=== PATIENT | female | born 1985 | race Caucasian/White ===

== ENCOUNTER 2020-05-02 12:00 | Inpatient (IN) | payer OTHER ==
--- NOTE | 2020-05-02 08:17 | PCM.LDHP ---
L&D History of Present Illness - General Date of Service: 05/02/20 Admit Problem/Dx: Admission Diagnosis/Problem Admission Diagnosis/Problem 05/02/20 08:02 at 39 weeks Elective induction of labor at term Source of Information: Patient History Limitations: Reports: No Limitations - History of Present Illness Introduction:: 34 yo A1 at 39+1 weeks gestation admitted for elective induction of labor. She has a favorable cervix and history of precipitous delivery with her last baby. [place] of town and is concerned that she wouldn't make it to the hospital in time if she goes into labor spontaneously. GBS is negative, blood type is O positive. 1 hour glucola was wnl at 112. Her infectious disease screenings were all negative and she has good antibodies to Rubella and Varicella. She declined testing for trisomies and NTD. She has had a mild anemia with this and has been taking an iron supplement in addition to her vitamin. She is a non smoker. She received her Tdap on 03/11/2020 but did not get a flu vaccine this past season. Her biggest baby was 8 lb 3 oz in 2012 and her last baby was 7 lb 14 oz. She breastfed all of her babies for at least a year and plans to breastfeed with this baby as well. She has not been feeling well this week with fatigue, cramping and some diarrhea . She denies fever, cough, body aches and SOB. - Related Data Allergies/Adverse Reactions: Allergies Allergy/AdvReac Type Severity Reaction Status Date / Time amoxicillin Allergy Mild Hives Verified 05/02/20 12:08 codeine Allergy Mild Hives Verified 05/02/20 12:08 erythromycin base Allergy Mild Hives Verified 05/02/20 12:08 Home Medications: Home Meds Acetaminophen [Tylenol] 650 mg PO Q6H PRN #0 tablet 02/21/16 [Rx] Docusate Sodium [Colace] 100 mg PO BID PRN #0 cap 02/21/16 [Rx] Ibuprofen [IJD: Ibuprofen] 800 mg PO Q8H PRN #0 tablet 02/21/16 [Rx] Vit with Ca/FA/Iron [ Plus Iron] 1 each PO DAILY tablet 02/21/16 [Rx] Pyridoxine HCl (Vitamin B6) [Vitamin B-6] 50 mg PO TID 10/24/19 [History] Past Medical History - Past Health History Medical/Surgical History: Denies Medical/Surgical History HEENT History: Reports: Impaired Vision Cardiovascular History: Reports: None Respiratory History: Reports: None Gastrointestinal History: Reports: None Genitourinary History: Reports: None, Retention, Urinary (At the beginning of her that required urinary catheterization. 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 Para: 3 LMP (Approximate): Musculoskeletal History: Reports: Other (See Below) Other Musculoskeletal History: foot surgery Neurological History: Reports: None Psychiatric History: Reports: None Endocrine/Metabolic History: Reports: None Hematologic History: Reports: None Immunologic History: Reports: None Oncologic (Cancer) History: Reports: None Dermatologic History: Reports: None - Infectious Disease History Infectious Disease History: Reports: None - Past Surgical History Head Surgeries/Procedures: Reports: None Neurological Surgical History: Reports: None Social & Family History - Family History Family Medical History: Noncontributory - Tobacco Use Smoking Status *Q: Never Smoker - Tobacco Core Measures Tobacco Use/Smoking Within Last 30 Days: No - Caffeine Use Caffeine Use: Reports: None - Living Situation & Occupation Living situation: Reports: Occupation: Unemployed H&P Review of Systems - Review of Systems: Review Of Systems: See Below General: Reports: Fatigue HEENT: Reports: No Symptoms Pulmonary: Reports: No Symptoms Cardiovascular: Reports: No Symptoms Gastrointestinal: Reports: Diarrhea Genitourinary: Reports: No Symptoms Skin: Reports: No Symptoms Neurological: Reports: No Symptoms Hematologic/Lymphatic: Reports: No Symptoms Immunologic: Reports: No Symptoms L&D Exam - Exam Exam: See Below - OB Specific Contraction Duration (sec): No contractions Movement: Active Heart Tones: Present Heart Tones per Min: 150 Heart Rate (FHR) Variability: Moderate (6-25 bmp) Presentation: Vertex Estimated Weight: 7 lb - Marino Score Marino Score Cervix Position: Midposition Marino Score Consistency: Soft Marino Score Effacement: 51-70% Marino Score Dilation: 3-4 cm Marino Score 's Station: -1 ,0 Marino Score Total: 9 - Exam General: Alert, Oriented HEENT: Conjunctiva Clear, Mucosa Moist & [place], Pupils Equal Neck: Supple, Trachea Midline Lungs: Normal Respiratory Effort Cardiovascular: Regular Rate, Regular Rhythm GI/Abdominal Exam: Normal Bowel Sounds Rectal Exam: Deferred Genitourinary: Normal external exam Back Exam: Normal Inspection, Full Range of Motion Extremities: Normal Inspection, No Pedal Edema, Normal Capillary Refill Skin: Warm, Dry, Intact Neurological: Cranial Nerves Intact, Normal Gait, Normal Speech Psychiatric: Alert, Normal Affect, Normal Mood - Patient Data Result Diagrams: 05/02/20 12:00 - Problem List (1) 39 weeks gestation of SNOMED Code(s): 67892412 ICD Code: Z3A.39 - 39 WEEKS GESTATION OF Status: Acute Current Visit: No (2) History of precipitous labor and deliveries in third trimester, antepartum SNOMED Code(s): 386794722, 743875742, 534975247, 820792034 ICD Code: O09.293 - SUPRVSN OF PREG W POOR REPRODCTV OR OBSTET HX, THIRD TRI Status: Acute Current Visit: No Problem List Initiated/Reviewed/Updated: Yes Assessment/Plan Comment:: 34 yo A1 at 39+1 weeks gestation admitted for elective induction of labor with a favorable cervix. GBS negative. Blood type O positive. Plans to breastfeed. Plan: Start induction with AROM and pitocin per protocol Anticipate vaginal delivery. Skin to skin after delivery and Mom plans to breastfeed. COVID testing today.
[~2020-05-02 12:00] MED LIST: Acetaminophen 325 MG Tab PO PRN; Calcium Carbonate 500 MG Tab.Chew PO PRN; Famotidine 20 MG Tab PO PRN; Lidocaine 1% 50 ML MDV INJECT ONE; Lidocaine 1.5% with EPINEPHrine 1:200,000 5 ML Amp ONE; Nalbuphine 10 MG/ML Syringe IVPUSH PRN; Ondansetron 4 MG/2 ML SDV IVPUSH PRN; Oxytocin/Lactated Ringers 10 UNIT/1,000 ML BAG IV SCH; Sodium Chloride 0.9% 10 ML Syringe FLUSH PRN
[2020-05-02] MEDS: Lactated Ringers 1,000 ML IV SCH ×3 (12:45→16:39)
[2020-05-02] MEDS ORDERED: fentaNYL 100 MCG/2 ML SDV EPIDUR PRN (13:37)
[2020-05-02] MEDS ORDERED: diphenhydrAMINE 50 MG/ML SDV IVPUSH PRN (13:37)
[2020-05-02] MEDS ORDERED: Bupivacaine/fentaNYL/NS 100 ML Bag EPIDUR PRN (13:37)
[2020-05-02] MEDS ORDERED: ePHEDrine 50 MG/ML SDV IVPUSH PRN (13:37)
--- NOTE | 2020-05-02 14:06 | PCM.PREANE ---
Preanesthetic Assessment - Procedure Proposed Procedure: Continuous labor epidural - Anesthesia/Transfusion/Family Hx Anesthesia History: Prior Anesthesia Without Reaction - Review of Systems General: No Symptoms Pulmonary: No Symptoms Cardiovascular: No Symptoms Gastrointestinal: No Symptoms Neurological: No Symptoms Other: Reports: None - Physical Assessment Vital Signs: Last Vital Signs Temp 98.1 F 05/02/20 12:24 Pulse 103 H 05/02/20 12:24 Resp 18 05/02/20 12:24 BP 120/74 05/02/20 12:24 Pulse Ox 99 05/02/20 12:24 Height: 1.65 m Weight: 74.525 kg ASA Class: 2 Mental Status: Alert & Oriented x3 Airway Class: Mallampati = 2 Dentition: Reports: Normal Dentition Thyro-Mental Finger Breadths: 3 Mouth Opening Finger Breadths: 3 ROM/Head Extension: Full Lungs: Clear to Auscultation, Normal Respiratory Effort Cardiovascular: Regular Rate, Regular Rhythm - Lab Values: Laboratory Last Values WBC 10.19 K/mm3 (3.98-10.04) H 05/02/20 12:00 RBC 3.50 M/mm3 (3.98-5.22) L 05/02/20 12:00 Hgb 10.8 gm/dl (11.2-15.7) L 05/02/20 12:00 Hct 34.1 % (34.1-44.9) 05/02/20 12:00 MCV 97.4 fl (79.4-94.8) H 05/02/20 12:00 MCH 30.9 pg (25.6-32.2) 05/02/20 12:00 MCHC 31.7 g/dl (32.2-35.5) L 05/02/20 12:00 RDW Std Deviation 44.2 fL (36.4-46.3) 05/02/20 12:00 Plt Count 223 K/mm3 (182-369) 05/02/20 12:00 MPV 9.1 fl (9.4-12.3) L 05/02/20 12:00 COVID-19 (MARTÍNEZ) Negative (NEGATIVE) 05/02/20 12:35 - Allergies Allergies/Adverse Reactions: Allergies Allergy/AdvReac Type Severity Reaction Status Date / Time amoxicillin Allergy Mild Hives Verified 05/02/20 12:08 codeine Allergy Mild Hives Verified 05/02/20 12:08 erythromycin base Allergy Mild Hives Verified 05/02/20 12:08 - Acknowledgements Anesthesia Type Planned: Epidural Pt an Appropriate Candidate for the Planned Anesthesia: Yes Alternatives and Risks of Anesthesia Discussed w Pt/Guardian: Yes Pt/Guardian Understands and Agrees with Anesthesia Plan: Yes PreAnesthesia Questionnaire - Past Health History Medical/Surgical History: Denies Medical/Surgical History HEENT History: Reports: Impaired Vision Cardiovascular History: Reports: None Respiratory History: Reports: None Gastrointestinal History: Reports: None Genitourinary History: Reports: None, Retention, 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: Musculoskeletal History: Reports: Other (See Below) Other Musculoskeletal History: foot surgery Neurological History: Reports: None Psychiatric History: Reports: None Endocrine/Metabolic History: Reports: None Hematologic History: Reports: None Immunologic History: Reports: None Oncologic (Cancer) History: Reports: None Dermatologic History: Reports: None - Infectious Disease History Infectious Disease History: Reports: None - Past Surgical History Head Surgeries/Procedures: Reports: None Neurological Surgical History: Reports: None - SUBSTANCE USE Smoking Status *Q: Never Smoker - HOME MEDS Home Medications: Home Meds Acetaminophen [Tylenol] 650 mg PO Q6H PRN #0 tablet 02/21/16 [Rx] Docusate Sodium [Colace] 100 mg PO BID PRN #0 cap 02/21/16 [Rx] Ibuprofen [IJD: Ibuprofen] 800 mg PO Q8H PRN #0 tablet 02/21/16 [Rx] Vit with Ca/FA/Iron [ Plus Iron] 1 each PO DAILY tablet 02/21/16 [Rx] Pyridoxine HCl (Vitamin B6) [Vitamin B-6] 50 mg PO TID 10/24/19 [History] - CURRENT (IN HOUSE) MEDS Current Meds: Current Medications Acetaminophen (Tylenol) 650 mg PO Q4H PRN PRN Reason: Pain (Mild 1-3) and fever Calcium Carbonate/Glycine (Tums) 1,000 mg PO Q2H PRN PRN Reason: Indigestion Diphenhydramine HCl (Benadryl) 25 mg IVPUSH Q6H PRN PRN Reason: pruritis Ephedrine Sulfate (Ephedrine Sulfate) 5 mg IVPUSH ASDIRECTED PRN PRN Reason: Hypotension Famotidine (Pepcid) 20 mg PO Q12H PRN PRN Reason: Heartburn Fentanyl (Sublimaze) 100 mcg EPIDUR Q3H PRN PRN Reason: Pain Fentanyl/Bupivacaine HCl (Fentanyl/Bupivacaine/Ns 2 Mcg-0.125% 100 Ml) 100 ml EPIDUR ASDIRECTED PRN PRN Reason: Pain Oxytocin/Lactated Ringer's (Pitocin In Lr 10 Units/1,000 Ml) 10 unit in 1,000 mls @ 12 mls/hr IV TITRATE ROYA; Protocol Oxytocin/Lactated Ringer's (Pitocin In Lr 10 Units/1,000 Ml) 10 unit in 1,000 mls @ 500 mls/hr IV .CONTINUOUS ROYA Lactated Ringer's (Ringers, Lactated) 1,000 mls @ 100 mls/hr IV ASDIRECTED ROYA Last Admin: 05/02/20 13:37 Dose: 100 mls/hr Documented by: Nalbuphine HCl (Nubain) 10 mg IVPUSH Q2H PRN PRN Reason: Pain Ondansetron HCl (Zofran) 4 mg IVPUSH Q4H PRN PRN Reason: Nausea/Vomiting Sodium Chloride (Saline Flush) 10 ml FLUSH ASDIRECTED PRN PRN Reason: Keep Vein Open Discontinued Medications Lidocaine HCl (Xylocaine 1%) 20 ml INJECT ONETIME ONE Stop: 05/02/20 08:28
--- NOTE | 2020-05-02 20:00 | PCM.DEL ---
L & D Note - General Info Date of Service: 05/02/20 Mother's Due Date: 05/08/20 - Delivery Note Labor: Induced by ARM Delivery Outcome: Livebirth Infant Delivery Method: Spontaneous Vaginal Delivery-Single Delivery Mode: Spontaneous Presentation: Left Occiput Anterior (HARSHA) Nuchal Cord: Present (1 loop that was snug, reduced) Prep: Povidone-Iodine (Betadine Anesthesia Type: Epidural Amniotic Fluid Description: Clear Episiotomy Type: None Laceration: None Placenta: Intact, Spontaneous Cord: 3 Vessels Estimated Blood Loss: 200 Resuscitation Needed: No : Bulb Syringe, Stimulated, Warmed, [place] Used Score 1 min: 8 Score 5 min: 9 Delivery Comments (Free Text/Narrative):: 34 yo A1 female admitted for elective induction of labor at 39 weeks with history of precipitous delivery with her last baby. GBS negative, blood type O positive. COVID test today negative. She was 3-4 cm, 50% effaced, station -1 on admission at noon today. She was not having any contractions. AROM was performed with clear fluid. She started having contractions after the AROM and had an epidural placed at 1430. She had good analgesia with that. She progressed well and did not need any pitocin to augment her labor. She was completely dilated at about 1815 and I was called to attend. We had her prepped and started pushing at 1834. Baby tolerated second stage of labor well. Head delivered from HARSHA position and there was a nuchal cord with 1 loop that was reduced and then the shoulders were delivered without difficulty. Time of delivery was 1926 and we had a baby girl. She cried at the perineum, mouth and nose were suctioned with bulb suction and she was placed skin to skin on mother's abdomen. She was dried and stimulated and suctioned. The cord was clamped once it stopped pulsating and baby was moved up to her chest, skin to skin. Apgars were 8 and 9 at 1 and 5 minutes respectively. Pitocin IV bolus was started after baby delivered. Placenta delivered spontaneously at 1933 and it was intact. There were 3 vessels in the cord. There was no perineal tear. Uterus firmed down nicely. EBL was 200 ml weight was 8 lb 7 oz, (3820 grams). Mom plans to breastfeed. Both Mom and baby were left in the delivery room in stable condition. Induction Criteria - Marino Score Marino Score Dilation: 3-4 cm Marino Score Effacement: 40-50% Marino Score Infant's Station: -1 ,0 Marino Score Consistency: Soft Marino Score Cervix Position: Midposition Marino Score Total: 8 Marino Score Presenting Part: Reports: Cephalic - Induction Gestational Age >/= 39 wks: Yes Estimated Pelvis: Reports: Adequate Reassuring Monitoring Strip: Yes Absence of Tachy Systole: Yes - General Info Date of Service: 05/02/20 Admission Dx/Problem (Free Text): Admission Diagnosis/Problem Admission Diagnosis/Problem 05/02/20 08:02 at 39 weeks Elective induction of labor at term Functional Status: Reports: Pain Controlled, Tolerating Diet - Review of Systems General: Reports: No Symptoms HEENT: Reports: No Symptoms Pulmonary: Reports: No Symptoms Cardiovascular: Reports: No Symptoms Gastrointestinal: Reports: No Symptoms Genitourinary: Reports: No Symptoms Musculoskeletal: Reports: No Symptoms Skin: Reports: No Symptoms Neurological: Reports: No Symptoms Psychiatric: Reports: No Symptoms - Patient Data Vitals - Most Recent: Last Vital Signs Temp 36.7 C 05/02/20 12:24 Pulse 103 H 05/02/20 12:24 Resp 18 05/02/20 12:24 BP 120/74 05/02/20 12:24 Pulse Ox 99 05/02/20 12:24 Weight - Most Recent: 74.525 kg I&O - Last 24 Hours: Intake & Output 05/02/20 05/02/20 05/02/20 06:59 14:59 22:59 Intake Total 560 Balance 560 Lab Results Last 24 Hours: Laboratory Results - last 24 hr 05/02/20 05/02/20 Range/Units 12:00 12:35 WBC 10.19 H (3.98-10.04) K/mm3 RBC 3.50 L (3.98-5.22) M/mm3 Hgb 10.8 L (11.2-15.7) gm/dl Hct 34.1 (34.1-44.9) % MCV 97.4 H (79.4-94.8) fl MCH 30.9 (25.6-32.2) pg MCHC 31.7 L (32.2-35.5) g/dl RDW Std Deviation 44.2 (36.4-46.3) fL Plt Count 223 (182-369) K/mm3 MPV 9.1 L (9.4-12.3) fl COVID-19 (MARTÍNEZ) Negative (NEGATIVE) Med Orders - Current: Current Medications Acetaminophen (Tylenol) 650 mg PO Q4H PRN PRN Reason: Pain (Mild 1-3) and fever Calcium Carbonate/Glycine (Tums) 1,000 mg PO Q2H PRN PRN Reason: Indigestion Diphenhydramine HCl (Benadryl) 25 mg IVPUSH Q6H PRN PRN Reason: pruritis Ephedrine Sulfate (Ephedrine Sulfate) 5 mg IVPUSH ASDIRECTED PRN PRN Reason: Hypotension Famotidine (Pepcid) 20 mg PO Q12H PRN PRN Reason: Heartburn Fentanyl (Sublimaze) 100 mcg EPIDUR Q3H PRN PRN Reason: Pain Last Admin: 05/02/20 14:14 Dose: 100 mcg Documented by: Fentanyl/Bupivacaine HCl (Fentanyl/Bupivacaine/Ns 2 Mcg-0.125% 100 Ml) 100 ml EPIDUR ASDIRECTED PRN PRN Reason: Pain Last Admin: 05/02/20 14:15 Dose: 100 ml Documented by: Oxytocin/Lactated Ringer's (Pitocin In Lr 10 Units/1,000 Ml) 10 unit in 1,000 mls @ 12 mls/hr IV TITRATE ROYA; Protocol Oxytocin/Lactated Ringer's (Pitocin In Lr 10 Units/1,000 Ml) 10 unit in 1,000 mls @ 500 mls/hr IV .CONTINUOUS ROYA Lactated Ringer's (Ringers, Lactated) 1,000 mls @ 100 mls/hr IV ASDIRECTED ROYA Last Admin: 05/02/20 16:39 Dose: 100 mls/hr Documented by: Nalbuphine HCl (Nubain) 10 mg IVPUSH Q2H PRN PRN Reason: Pain Ondansetron HCl (Zofran) 4 mg IVPUSH Q4H PRN PRN Reason: Nausea/Vomiting Sodium Chloride (Saline Flush) 10 ml FLUSH ASDIRECTED PRN PRN Reason: Keep Vein Open Discontinued Medications Lidocaine HCl (Xylocaine 1%) 20 ml INJECT ONETIME ONE Stop: 05/02/20 08:28 - Exam General: Alert, Oriented, Cooperative, No Acute Distress HEENT: Pupils Equal, Mucous Membr. Moist/[place] Neck: Supple Lungs: Normal Respiratory Effort Cardiovascular: Regular Rate, Regular Rhythm (Female) Exam: Normal External Exam, Vaginal Bleeding, Other (Fundus firm) Back Exam: Normal Inspection, Full Range of Motion Extremities: Normal Inspection Skin: Warm, Dry, Intact Neurological: No New Focal Deficit Psy/Mental Status: Alert, Normal Affect, Normal Mood - Problem List & Annotations (1) 39 weeks gestation of SNOMED Code(s): 93870878 Code(s): Z3A.39 - 39 WEEKS GESTATION OF Status: Acute Current Visit: No (2) History of precipitous labor and deliveries in third trimester, antepartum SNOMED Code(s): 467243462, 853775172, 855283136, 220749312 Code(s): O09.293 - SUPRVSN OF PREG W POOR REPRODCTV OR OBSTET HX, THIRD TRI Status: Acute Current Visit: No (3) Normal spontaneous vaginal delivery SNOMED Code(s): 55657738, 351779602 Code(s): O80 - ENCOUNTER FOR FULL-TERM UNCOMPLICATED DELIVERY Status: Acute Current Visit: Yes (4) Breast feeding status of mother SNOMED Code(s): 595750072 Code(s): Z39.1 - ENCOUNTER FOR CARE AND EXAMINATION OF LACTATING MOTHER Status: Acute Current Visit: Yes - Problem List Review Problem List Initiated/Reviewed/Updated: Yes - My Orders Last 24 Hours: My Active Orders 05/02/20 08:27 Patient Status [ADT] Routine Activity as Tolerated [RC] PFP Communication Order [RC] ASDIRECTED Non Stress Test [RC] PER UNIT ROUTINE Notify Provider [RC] PFP Notify Provider [RC] PRN Acetaminophen [Tylenol] 650 mg PO Q4H PRN Calcium Carbonate [Tums] 1,000 mg PO Q2H PRN Famotidine [Pepcid] 20 mg PO Q12H PRN Nalbuphine [Nubain] 10 mg IVPUSH Q2H PRN Ondansetron [Zofran] 4 mg IVPUSH Q4H PRN Sodium Chloride 0.9% [Saline Flush] 10 ml FLUSH ASDIRECTED PRN Electronic Heart Tones Ext w TOCO [WOMSER] Routine Electronic Heart Tones Internal [WOMSER] Per Unit Routine Peripheral IV Insertion Adult [OM.PC] Routine Telemetry Monitoring [WOMSER] Routine Resuscitation Status Routine 05/02/20 08:28 Heart Tones [RC] ASDIRECTED Peripheral IV Care [RC] Q2HR 05/02/20 08:30 Lactated Ringers [Ringers, Lactated] 1,000 ml IV ASDIRECTED Oxytocin/Lactated Ringers [Pitocin in LR 10 Units/1,000 ML] 10 unit in 1,000 ml IV .CONTINUOUS Oxytocin/Lactated Ringers [Pitocin in LR 10 Units/1,000 ML] 10 unit in 1,000 ml IV TITRATE 05/02/20 12:00 RAPID PLASMA REAGIN,RPR [CHEM] Routine 05/02/20 Dinner Regular Diet [DIET] - Assessment Assessment:: at 39+1 weeks gestation. No perineal tear. EBL 200 ml, fundus firm. - Plan Plan:: 1. Routine care 2. support and encouragement.
[2020-05-02] MEDS ORDERED: Witch Hazel Medicated Pads 40/Jar TOP PRN (20:15)
[2020-05-02] MEDS ORDERED: Simethicone 80 MG Tab.Chew PO PRN (20:15)
[2020-05-02] MEDS ORDERED: Docusate Sodium 100 MG Cap PO PRN (20:15)
[2020-05-02] MEDS: Ibuprofen 800 MG Tab PO PRN (20:54)
[2020-05-03] MEDS: Ibuprofen 800 MG Tab PO PRN ×3 (03:37→15:29)
[2020-05-03] MEDS ORDERED: Prenatal Multivitamin with Calcium/Folic Acid/Iron Tab PO SCH (09:00)
[2020-05-03] MEDS: Ferrous Sulfate 324 MG Tab.EC PO SCH (09:18)
--- NOTE | 2020-05-03 11:18 | PCM.DCSUM1 ---
Discharge Summary - Hospital Course Free Text/Narrative:: 34 yo A1 female admitted for elective induction of labor at 39 weeks with history of precipitous delivery with her last baby. GBS negative, blood type O positive. COVID test negative. She was 3-4 cm, 50% effaced, station -1 on admission at noon on 05/02/20. She was not having any contractions. AROM was performed with clear fluid. She started having contractions after the AROM and had an epidural placed at 1430. She had good analgesia with that. She progressed well and did not need any pitocin to augment her labor. She was completely dilated at about 1815 and I was called to attend. We had her prepped and started pushing at 1834. Baby tolerated second stage of labor well. Head delivered from HARSHA position and there was a nuchal cord with 1 loop that was reduced and then the shoulders were delivered without difficulty. Time of delivery was 192 and we had a baby girl. She cried at the perineum, mouth and nose were suctioned with bulb suction and she was placed skin to skin on mother's abdomen. She was dried and stimulated and suctioned. The cord was clamped once it stopped pulsating and baby was moved up to her chest, skin to skin. Apgars were 8 and 9 at 1 and 5 minutes respectively. Pitocin IV bolus was started after baby delivered. Placenta delivered spontaneously at 1933 and it was intact. There were 3 vessels in the cord. There was no perineal tear. Uterus firmed down nicely. EBL was 200 ml weight was 8 lb 7 oz, (3820 grams). Mom plans to breastfeed. Both Mom and baby were left in the delivery room in stable condition. She has done well with only light bleeding and no clots. Mild crampi ng relieved with ibuprofen. She has been and denies nipple pain. Appetite has been good, no further diarrhea. Denies headache or dizziness. Some mild discomfort at epidural site. Denies calf pain. Mood is stable, EPDS score is 3. Diagnosis: Stroke: No Modified Tierra Scale: No Symptoms at All Modified Fawnskin Scale Score: 0 - Discharge Data Discharge Date: 05/03/20 Discharge Disposition: Home, Self-Care 01 Condition: Good - Referral to Home Health Primary Care Physician: Elizabeth Conn MD - Discharge Diagnosis/Problem(s) (1) 39 weeks gestation of SNOMED Code(s): 76551589 ICD Code: Z3A.39 - 39 WEEKS GESTATION OF Status: Acute Current Visit: No (2) History of precipitous labor and deliveries in third trimester, antepartum SNOMED Code(s): 914082237, 870261055, 825214614, 186970403 ICD Code: O09.293 - SUPRVSN OF PREG W POOR REPRODCTV OR OBSTET HX, THIRD TRI Status: Acute Current Visit: No (3) Normal spontaneous vaginal delivery SNOMED Code(s): 23631157, 133124247 ICD Code: O80 - ENCOUNTER FOR FULL-TERM UNCOMPLICATED DELIVERY Status: Acute Current Visit: Yes (4) Breast feeding status of mother SNOMED Code(s): 550377086 ICD Code: Z39.1 - ENCOUNTER FOR CARE AND EXAMINATION OF LACTATING MOTHER Status: Acute Current Visit: Yes - Patient Instructions Diet: Usual Diet as Tolerated, Drink 8-10+ Glasses/Day Activity: As Tolerated Driving: May Drive Today Showering/Bathing: May Shower Notify Provider of: Fever, Increased Pain, Swelling and Redness, Drainage, Nausea and/or Vomiting - Discharge Plan *PRESCRIPTION DRUG MONITORING PROGRAM REVIEWED*: Not Applicable *COPY OF PRESCRIPTION DRUG MONITORING REPORT IN PATIENT DIEGO: Not Applicable Home Medications: Home Meds Acetaminophen [Tylenol] 650 mg PO Q6H PRN #0 tablet 02/21/16 [Rx] Docusate Sodium [Colace] 100 mg PO BID PRN #0 cap 02/21/16 [Rx] Ibuprofen [IJD: Ibuprofen] 800 mg PO Q8H PRN #0 tablet 02/21/16 [Rx] Vit with Ca/FA/Iron [ Plus Iron] 1 each PO DAILY tablet 02/21/16 [Rx] Acetaminophen [Tylenol] 650 mg PO Q4H PRN tablet 05/03/20 [Rx] Ferrous Sulfate 324 mg PO BIDMEALS tab.ec 05/03/20 [Rx] witch Heide [Tucks] 1 pad TOP ASDIRECTED PRN pad 05/03/20 [Rx] Oxygen Therapy Mode: Room Air Patient Handouts: and Inducing , Rooming-In With Your , Exclusive , Breast Pumping Tips, and Low Milk Supply, and Medicine Use, and Mastitis, and Self-Care, Breast Engorgement, Nursing Strike, Tips for a Good Latch, and Cracked or Sore Nipples, Eating Plan for Women, Storing Breast Milk - Discharge Summary/Plan Comment DC Time >30 min.: No Discharge Summary/Plan Comment: 34 yo A1 who was induced at 39 weeks with AROM. She did have an epidural which she did well with. Labor progressed normally and had at 1927 on 05/02/20 and had a baby girl weighing 8 lb 7 oz. Baby latched and nursed in the delivery room and continues to nurse. EBL was 200 ml, uterus has been firm and bleeding light since delivery. She had no perineal tear and just using ibuprofen for some mild cramping. Blood type is O positive and she had her Tdap antenatally. COVID test was negative on admission. EPDS score is 3 today. A/P: day #1 - will discharge today and follow up in 6 weeks for visit. Advised no intercourse for 6 weeks and will plan to start minipill at 6 weeks. - she has breastfed with her other 3 children for over a year. Reviewed signs of a good latch and feeding cues. Continue . Advised to start a vitamin D supplement daily. Mild anemia - continue PNV and iron supplement. - General Info Date of Service: 05/03/20 Admission Dx/Problem (Free Text: Admission Diagnosis/Problem Admission Diagnosis/Problem 05/02/20 08:02 at 39 weeks Elective induction of labor at term Functional Status: Reports: Pain Controlled, Tolerating Diet, Ambulating, Urinating - Review of Systems General: Reports: No Symptoms HEENT: Reports: No Symptoms Pulmonary: Reports: No Symptoms Cardiovascular: Reports: No Symptoms Gastrointestinal: Reports: No Symptoms Genitourinary: Reports: No Symptoms Musculoskeletal: Reports: Back Pain Skin: Reports: No Symptoms Neurological: Reports: No Symptoms Psychiatric: Reports: No Symptoms - Patient Data Vitals - Most Recent: Last Vital Signs Temp 37.0 C 05/03/20 09:15 Pulse 85 05/03/20 09:15 Resp 15 05/03/20 09:15 BP 108/56 L 05/03/20 09:15 Pulse Ox 97 05/03/20 09:15 Weight - Most Recent: 74.525 kg I&O - Last 24 hours: Intake & Output 05/02/20 05/03/20 05/03/20 22:59 06:59 14:59 Intake Total 4560 Balance 4560 Lab Results - Last 24 hrs: Laboratory Results - last 24 hr 05/02/20 05/02/20 05/02/20 Range/Units 12:00 12:00 12:35 WBC 10.19 H (3.98-10.04) K/mm3 RBC 3.50 L (3.98-5.22) M/mm3 Hgb 10.8 L (11.2-15.7) gm/dl Hct 34.1 (34.1-44.9) % MCV 97.4 H (79.4-94.8) fl MCH 30.9 (25.6-32.2) pg MCHC 31.7 L (32.2-35.5) g/dl RDW Std Deviation 44.2 (36.4-46.3) fL Plt Count 223 (182-369) K/mm3 MPV 9.1 L (9.4-12.3) fl RPR Non-reactive (NONREACTIVE) COVID-19 (MARTÍNEZ) Negative (NEGATIVE) 05/03/20 Range/Units 05:19 WBC 14.75 H (3.98-10.04) K/mm3 RBC 3.31 L (3.98-5.22) M/mm3 Hgb 10.2 L (11.2-15.7) gm/dl Hct 32.4 L (34.1-44.9) % MCV 97.9 H (79.4-94.8) fl MCH 30.8 (25.6-32.2) pg MCHC 31.5 L (32.2-35.5) g/dl RDW Std Deviation 44.1 (36.4-46.3) fL Plt Count 205 (182-369) K/mm3 MPV 9.7 (9.4-12.3) fl RPR (NONREACTIVE) COVID-19 (MARTÍNEZ) (NEGATIVE) Med Orders - Current: Current Medications Acetaminophen (Tylenol) 650 mg PO Q4H PRN PRN Reason: Pain (Mild 1-3) and fever Docusate Sodium (Colace) 100 mg PO BID PRN PRN Reason: Constipation Ferrous Sulfate (Ferrous Sulfate) 324 mg PO BIDMEALS [facility] Last Admin: 05/03/20 09:18 Dose: 324 mg Documented by: Ibuprofen (Motrin) 800 mg PO Q6H PRN PRN Reason: Mild pain or fever Last Admin: 05/03/20 09:18 Dose: 800 mg Documented by: Radha Multivit/Caribou/Iron/Folic Ac ( Plus Iron) 1 each PO DAILY ROYA Last Admin: 05/03/20 09:18 Dose: 1 each Documented by: Simethicone (Simethicone) 80 mg PO Q4H PRN PRN Reason: Gas Witch Heide (Tucks) 1 pad TOP ASDIRECTED PRN PRN Reason: Perineal Comfort Measure Last Admin: 05/02/20 21:02 Dose: 1 canister Documented by: Discontinued Medications Calcium Carbonate/Glycine (Tums) 1,000 mg PO Q2H PRN PRN Reason: Indigestion Diphenhydramine HCl (Benadryl) 25 mg IVPUSH Q6H PRN PRN Reason: pruritis Ephedrine Sulfate (Ephedrine Sulfate) 5 mg IVPUSH ASDIRECTED PRN PRN Reason: Hypotension Famotidine (Pepcid) 20 mg PO Q12H PRN PRN Reason: Heartburn Fentanyl (Sublimaze) 100 mcg EPIDUR Q3H PRN PRN Reason: Pain Last Admin: 05/02/20 14:14 Dose: 100 mcg Documented by: Fentanyl/Bupivacaine HCl (Fentanyl/Bupivacaine/Ns 2 Mcg-0.125% 100 Ml) 100 ml EPIDUR ASDIRECTED PRN PRN Reason: Pain Last Admin: 05/02/20 14:15 Dose: 100 ml Documented by: Oxytocin/Lactated Ringer's (Pitocin In Lr 10 Units/1,000 Ml) 10 unit in 1,000 mls @ 12 mls/hr IV TITRATE ROYA; Protocol Oxytocin/Lactated Ringer's (Pitocin In Lr 10 Units/1,000 Ml) 10 unit in 1,000 mls @ 500 mls/hr IV .CONTINUOUS ROYA Last Admin: 05/02/20 19:30 Dose: 500 mls/hr Documented by: Lactated Ringer's (Ringers, Lactated) 1,000 mls @ 100 mls/hr IV ASDIRECTED ROYA Last Infusion: 05/02/20 19:25 Dose: 100 mls/hr Documented by: Lidocaine HCl (Xylocaine 1%) 20 ml INJECT ONETIME ONE Stop: 05/02/20 08:28 Last Admin: 05/02/20 20:13 Dose: Not Given Documented by: Nalbuphine HCl (Nubain) 10 mg IVPUSH Q2H PRN PRN Reason: Pain Ondansetron HCl (Zofran) 4 mg IVPUSH Q4H PRN PRN Reason: Nausea/Vomiting Sodium Chloride (Saline Flush) 10 ml FLUSH ASDIRECTED PRN PRN Reason: Keep Vein Open - Exam General: Reports: Alert, Oriented, No Acute Distress HEENT: Reports: Pupils Reactive, Mucous Membr. Moist/[place] Neck: Reports: Supple Lungs: Reports: Normal Respiratory Effort Cardiovascular: Reports: Regular Rate, Regular Rhythm GI/Abdominal Exam: Normal Bowel Sounds, No Distention (Female) Exam: Enlarged Uterus (Fundus 1 finger below U, firm to palpation), Vaginal Bleeding Rectal (Female) Exam: Deferred Back Exam: Reports: Normal Inspection, Full Range of Motion, Other (Mild tenderness over epidural site. No bruising.) Skin: Reports: Warm, Dry, Intact Wound/Incisions: Reports: Healing Well Neurological: Reports: No New Focal Deficit Psy/Mental Status: Reports: Alert, Normal Affect, Normal Mood
--- NOTE | 2020-05-03 11:38 | PCM48HPAN ---
Post Anesthesia Note - EVALUATION WITHIN 48HRS OF ANESTHETIC Vital Signs in Normal Range: Yes Patient Participated in Evaluation: Yes Respiratory Function Stable: Yes Airway Patent: Yes Cardiovascular Function Stable: Yes Hydration Status Stable: Yes Pain Control Satisfactory: Yes Nausea and Vomiting Control Satisfactory: Yes Mental Status Recovered: Yes Vital Signs: Last Vital Signs Temp 98.6 F 05/03/20 09:15 Pulse 85 05/03/20 09:15 Resp 15 05/03/20 09:15 BP 108/56 L 05/03/20 09:15 Pulse Ox 97 05/03/20 09:15 - COMMENTS/OBSERVATIONS Free Text/Narrative:: Patient is on her day 1. Stated understanding about possible backaches following epidural anesthesia. Mentions having some minor back soreness at this time. Explanation given about importance of avoiding back straining. Denies any headache or lightheadedness at this time. Rates her pain during the delivery about 1-2 /10. Comfortable now. Ambulating, no difficulty urinating.
[2020-05-04 04:04] VITALS: BP 104/62; PULSE 81
[2020-05-04] MEDS: Ferrous Sulfate 324 MG Tab.EC PO SCH (04:06)
== END 2020-05-03 21:55 | disposition home or self-care (01) | DRG 807 ==
LOC: JD.OB 12:00 → OBSVTOIN 19:27 → JD.OB 19:27 → EDSTATUS 05-05 14:33
PROVIDERS: ADMIT Family Medicine; ATTEND Family Medicine
PROC: 10E0XZZ Delivery of Products of Conception, External Approach (ICD-10-PCS; principal; 2020-05-02)
PROC: 10907ZC Drainage of Amniotic Fluid, Therapeutic from Products of Conception, Via Natural or Artificial Opening (ICD-10-PCS; 2020-05-02)
PROC: 3E033VJ Introduction of Other Hormone into Peripheral Vein, Percutaneous Approach (ICD-10-PCS; 2020-05-02)
PROC: 3E0R3BZ Introduction of Anesthetic Agent into Spinal Canal, Percutaneous Approach (ICD-10-PCS; 2020-05-02)
DX: O69.81X0 Labor and delivery complicated by cord around neck, without compression, not applicable or unspecified (principal); Z37.0 Single live birth; Z3A.39 39 weeks gestation of pregnancy; Z79.899 Other long term (current) drug therapy; Z11.59 Encounter for screening for other viral diseases; Z88.1 Allergy status to other antibiotic agents
CPT/HCPCS: 01967; 36415; 51702; 59025; 59409; 85027; 86592; A9270-GY; J2590; J3010; J7120; U0002